=== PATIENT | male | born 1955 | race Caucasian/White ===

== ENCOUNTER 2023-01-23 07:30 | Outpatient (REF) | payer MEDICARE, OTHER, SELFPAY ==
[2023-01-23 08:40] LABS: Cholesterol 186 mg/dL; HDL Cholesterol 56 mg/dL; LDL Cholesterol Calculated 111 mg/dl; Triglycerides 96 mg/dL
[2023-01-23 12:18] LABS: Reflex LDLD? No
== END 2023-01-23 07:31 | disposition home or self-care (01) ==
LOC: HO.LAB 07:30
PROVIDERS: PCP Pediatrics; Visit Provider Internal Medicine Cardiovascular Disease
DX: E78.2 Mixed hyperlipidemia (principal)
CPT/HCPCS: 36415; 80061